=== PATIENT | female | born 1970 | race Caucasian/White ===

== ENCOUNTER 2018-10-01 11:02 | Emergency (ER) | payer SELFPAY ==
[~2018-10-01] VITALS: Wt 67.5 kg
[~2018-10-01 11:02] MED LIST: ATIVAN; IBUP-1542 PO; XANAX
[2018-10-01 11:11] VITALS: BP 117/73; PULSE 99; RESP 18
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
== END 2018-10-01 14:02 | disposition home or self-care (01) ==
LOC: FTE 11:02
DX: S50.11XA Contusion of right forearm, initial encounter (principal); S69.91XA Unspecified injury of right wrist, hand and finger(s), initial encounter; Y08.89XA Assault by other specified means, initial encounter